=== PATIENT | female | born 1985 | race Caucasian/White ===

== ENCOUNTER → 2016-10-05 | Outpatient (CLI) | payer OTHER ==
[~2016-10-05] MED LIST: ALBU1AER9 INH; AZIT250T PO; CANA1TAB PO; LEVO75TA PO; LIRA18IN SQ; METF500T5 PO; NAPR1TAB9 PO; PRED20TA PO
[2016-10-05 14:40] LABS: BASO % 0.1 %; BASO ABS # 0.01 K/uL (0-0.2); COMPLETE YES; EOS % 0.8 %; HEMATOCRIT 42.3 % (37-47); IG% 0.4 %; LYMPH % 16.6 %; LYMPH ABS # 1.54 K/uL (1.2-3.4); MEAN CELL VOLUME 80.7 fL (80-100); MEAN CORPUSCULAR HEMOGLOBIN 27.9 pg (25-34); MEAN CORPUSCULAR HGB CONC 34.5 g/dl (32-36); MEAN PLATELET VOLUME 9.2 fL (7.4-10.4); MONO % 3.9 %; NEUT % 78.2 %; PLATELET COUNT 290 K/uL (130-400); RED BLOOD COUNT 5.24 M/uL (4.2-5.4); WHITE BLOOD COUNT 9.25 K/uL (4.8-10.8)
== END | disposition home or self-care (01) ==
LOC: C.LAB1850 13:52
PROVIDERS: ATTEND Internal Medicine
DX: M54.5 Low back pain (principal)

== ENCOUNTER 2016-10-30 23:07 | Emergency (ER) | payer OTHER ==
[~2016-10-30] VITALS: Ht 147.3 cm; Wt 84.8 kg
[~2016-10-30 23:07] MED LIST changes: -AZIT250T PO; -CANA1TAB PO; -LIRA18IN SQ
[2016-10-30 23:10] VITALS: BP 129/85; TEMP 36.9; Ht 147.3 cm; Wt 84.8 kg
[2016-10-30] MEDS ORDERED: ALBUT/IPRATROP 3MG/0.5MG NEB 3 ML VIAL INH ONE (23:30)
[2016-10-31] MEDS ORDERED: LIRA18IN SQ (00:06)
[2016-10-31] MEDS ORDERED: CANA1TAB PO (00:06)
[2016-10-31] MEDS ORDERED: AZITHROMYCIN 250 MG TAB PO ONE (00:15)
[2016-10-31] MEDS ORDERED: AZIT250T PO (00:15)
[2016-10-31] MEDS ORDERED: ALBUTEROL HFA 8 GM INHALER INH ONE (00:15)
[2016-10-31 00:28] VITALS: PULSE 96; O2SAT 99
--- NOTE | 2016-10-31 05:33 | EMERGENCY ROOM VISIT NOTE ---
History First contact with patient: 23:16 Chief Complaint: COUGH Stated Complaint: HARD TO BREATHE, CHEST HURTS, COUGHING UP PHLEM Nursing Triage Summary: c/o productive cough, congestion. Took Mucinex before coming to ED History of Present Illness The patient is a 31 year old female who presents to the Emergency Room with complaints of productive cough and chest congestion for the past 2-3 days. The patient is employed at [employer], and believes she may have gotten sick at work. She does not have distinct fever or chills. She has attempted Mucinex at home without significant improvement of symptoms. She does not have a history of asthma or chronic medical disease. She rates her discomfort a 5/10. Review of Systems More than 10 systems were reviewed and otherwise negative with the exception of history of present illness. Past Medical/Surgical History Medical Problems: (1) Bronchitis (2) Gallbladder disease (3) OBESITY, NOS (4) SUICIDAL IDEATION Family History Cancer Diabetes mellitus Heart disease Hypertension Social History Smoking Status: Never Smoker Alcohol Use: none Drug Use: none Marital Status: single Housing Status: lives with friends Occupation Status: employed Current/Historical Medications Scheduled Azithromycin (Zithromax), 250 MG PO DAILY Canagliflozin (Invokana), 100 MG PO DAILY Levothyroxine Sodium (Synthroid), 75 MCG PO DAILY Liraglutide (Victoza), 1.8 MG SQ DAILY Allergies Coded Allergies: No Known Allergies (Unverified , NONE, 10/31/16) Physical Exam Vital Signs Date Time Temp Pulse Resp B/P Pulse Ox O2 Delivery O2 Flow Rate FiO2 10/31/16 00:28 96 22 99 10/30/16 23:49 113 20 99 Nebulizer 10/30/16 23:23 Room Air 10/30/16 23:10 36.9 120 20 129/85 95 Room Air Pain Rating (0-10): 4.0 Physical Exam VITALS: Vitals are noted on the nurse's note and reviewed by myself. Vital signs stable. GENERAL: Well-developed, well-nourished, white female, who is in no acute distress and resting comfortably. Patient is cooperative with the examination. HEAD: Normocephalic atraumatic. EARS: External ear normal. External auditory canals clear, tympanic membranes pearly carmona without erythema or effusion bilaterally. EYES: Pupils equal round and reactive to light and accommodation. Conjunctivae without injection, sclerae without icterus. Extraocular movements intact. NOSE: Patent, turbinates without inflammation or discharge. MOUTH: Mucous membranes moist. Tonsils are not enlarged. Pharynx without erythema, blood, or exudate. Uvula midline. Airway patent. NECK: Supple without nuchal rigidity. No lymphadenopathy. No thyromegaly. Cervical spine is nontender. HEART: Regular rate and rhythm without murmurs gallops or rubs. LUNGS: Clear to auscultation bilaterally without wheezes, rales or rhonchi. No retractions or accessory muscle use. Medical Decision & Procedures Medications Administered Medications (Trade) Dose Ordered Sig/Santi Route Start Time Stop Time Status Last Admin Dose Admin Albuterol/ Ipratropium (Duoneb) 3 ml NOW ONCE INH 10/30/16 23:30 10/30/16 23:31 DC 10/30/16 23:48 3 ML Azithromycin (Zithromax Tab) 500 mg NOW ONCE PO 10/31/16 00:15 10/31/16 00:16 DC 10/31/16 00:26 500 MG Albuterol (Ventolin Hfa Inhaler) 2 puffs NOW ONCE INH 10/31/16 00:15 10/31/16 00:16 DC 10/31/16 00:26 2 PUFFS ED Course Physical exam and history were performed. Nursing notes and EMR were reviewed. Patient appears to have persistent cough for the past few days. She does not appear toxic on examination. The patient was given a DuoNeb treatment here in the department. Chest x-ray was performed. The chest x-ray does not appear to show acute findings. She did have improvement of her discomfort after the DuoNeb, and was experiencing a decreased cough. Overall the patient does appear stable for discharge home. I suspect her symptoms are related to a URI or possible early bronchitis. I will provide the patient a short course of Zithromax as well as an albuterol inhaler. I recommended that she follow with her primary care physician this week for further care and management. She was otherwise invited back to the ER with any new, worsening, or concerning symptoms. She voiced understanding and rated her discomfort a 0/10 at the time of departure. The chart was completed utilizing [employer] Voice Recognition Software. Grammatical errors, random word insertions, pronoun errors, and incomplete sentences are an occasional consequence of this system due to software limitations, ambient noise, and hardware issues. Any formal questions or concerns about the content, text, or information contained within the body of this dictation should be directly addressed to the provider for clarification. . Medical Decision Differential diagnosis: Etiologies such as viral syndrome, otitis, pharyngitis, pneumonia, influenza, meningitis, urinary tract infection, sepsis, bacteremia, as well as others were entertained. Impression Primary Impression: Cough Departure Information Dispostion Home / Self-Care Condition GOOD Prescriptions Azithromycin (Zithromax) 250 Mg Tab 250 MG PO DAILY for 4 Days, #4 TAB Prov: Baljeet Clayton PA-C 10/31/16 Referrals ,Joseph Rice M.D. (PCP) Forms HOME CARE DOCUMENTATION FORM, IMPORTANT VISIT INFORMATION Patient Instructions My [facility] Additional Instructions You were seen and evaluated today on an emergency basis only. This is not a substitute for, or an effort to provide, complete comprehensive medical care. It is not possible to recognize and treat all injuries or illnesses in a single emergency department visit. For this reason it is recommended that you followup with your primary care physician in the next 2-3 days for recheck of your condition. Take Zithromax 250 mg daily for the next 4 days. Use your albuterol inhaler 2 puffs every 4-6 hours as needed for coughing You are welcome to return to the emergency department anytime with new, worsening, or concerning symptoms.
--- NOTE | 2016-10-31 06:39 | DIAGNOSTIC IMAGING REPORT ---
CHEST 2 VIEWS ROUTINE CLINICAL HISTORY: Cough dyspnea COMPARISON STUDY: 03/25/2016 FINDINGS: The bones soft tissues and hemidiaphragms are normal. The cardiomediastinal silhouette is normal. The lungs are clear. The pulmonary vasculature is normal. IMPRESSION: Negative chest. Electronically signed by: Anastacio Jaquez M.D. 10/31/2016 6:37 AM Dictated Date/Time: 10/31/2016 6:35 AM
== END 2016-10-31 00:30 | disposition home or self-care (01) ==
LOC: C.EDB 23:08 → C.EDC 10-31 00:30
DX: R05 Cough (principal); K82.9 Disease of gallbladder, unspecified; Z86.19 Personal history of other infectious and parasitic diseases; Z79.899 Other long term (current) drug therapy; Z80.9 Family history of malignant neoplasm, unspecified; Z83.3 Family history of diabetes mellitus; Z82.49 Family history of ischemic heart disease and other diseases of the circulatory system

== ENCOUNTER → 2017-05-25 | Outpatient (CLI) | payer OTHER ==
[~2017-05-25] MED LIST changes: -ALBU1AER9 INH; +CANA1TAB PO; +LIRA18IN SQ; -METF500T5 PO; -NAPR1TAB9 PO; -PRED20TA PO
[2017-05-25 15:59] LABS: ALT/SGPT 22 U/L (12-78); BLOOD UREA NITROGEN 12 mg/dl (7-18); CALCIUM 9.1 mg/dl (8.5-10.1); CARBON DIOXIDE 27 mmol/L (21-32); CHLORIDE 102 mmol/L (98-107); CHOLESTEROL 203 mg/dl (0-200); CREATININE 0.66 mg/dl (0.60-1.20); GLUCOSE 115 mg/dl (70-99); POTASSIUM 3.7 mmol/L (3.5-5.1); SODIUM 136 mmol/L (136-145)
[2017-05-25 16:09] LABS: ALKALINE PHOSPHATASE 80 U/L (45-117); AST/SGOT 18 U/L (15-37); CHOLESTEROL/HDL RATIO 4.4; HDL CHOLESTEROL 46 mg/dl; LDL CHOLESTEROL CALCULATED 134 mg/dl; TRIGLYCERIDES 113 mg/dl (0-150); VERY LOW DENSITY LIPOPROT CALC 23 mg/dl
[2017-05-25 16:24] LABS: RATIO 53.9 mcg/mg (0-30.0)
[2017-05-25 16:54] LABS: ESTIMATED AVERAGE GLUCOSE 140 mg/dl; HA1C FLAG Normal (Normal)
== END | disposition home or self-care (01) ==
LOC: C.LAB1850 14:35
PROVIDERS: ATTEND Physician Assistant
DX: E03.9 Hypothyroidism, unspecified (principal); E11.9 Type 2 diabetes mellitus without complications

== ENCOUNTER → 2017-08-08 | Outpatient (CLI) | payer OTHER ==
[2017-08-08 12:22] LABS: ESTIMATED AVERAGE GLUCOSE 146 mg/dl; HA1C FLAG Normal (Normal)
[2017-08-08 13:05] LABS: RATIO 13.6 mcg/mg (0-30.0)
== END ==
LOC: C.LAB1850 09:41
PROVIDERS: ATTEND Physician Assistant
DX: E11.9 Type 2 diabetes mellitus without complications (principal)

== ENCOUNTER → 2017-08-25 | Outpatient (CLI) | payer OTHER | END | disposition home or self-care (01) | LOC: C.PAPS 17:42 | PROVIDERS: ATTEND Physician Assistant | DX: Z12.4 Encounter for screening for malignant neoplasm of cervix (principal) ==

== ENCOUNTER → 2018-04-04 | Outpatient (CLI) | payer OTHER ==
--- NOTE | 2018-04-09 13:39 | POLYSOMNOGRAPH REPORT ---
CLINICAL DATA: A 32-year-old female with BMI of 42, referred by Dr. Humphrey with a history of snoring, fatigue, obesity, and sleep apnea. On the evening of 04/05/2018, a home sleep apnea test was performed using a [employer] type 3 monitor. RECORDING RESULTS: Total recording time was 10 hours. The patient's estimated sleep time was 7.4 hours. The patient recording time was 7.4 hours. RESPIRATORY DATA: Mild sleep apnea was documented. The JACQUI was 13. There were 11 obstructive, 1 mixed, and 1 central apneic episode. There were 83 hypopneic episodes. The longest duration of apnea was 50 seconds. OXIMETRY DATA: Nocturnal hypoxemia was seen. Oxygen radha was 81%. Mean saturation was 92%. Time below 89% was 29 minutes. HEART RATE DATA: Heart rates ranged from 59-75 beats per minute. SNORING DATA: Snoring was recorded throughout the night. IMPRESSION: Mild sleep apnea/hypopnea with an JACQUI of 13 with nocturnal hypoxemia. RECOMMENDATIONS: The patient may benefit from weight loss, use of an oral appliance, or repeat sleep study with CPAP. Since the majority of her events occurred while supine, positional therapy may also be of benefit. Clinical correlation is needed. SANDI
== END | disposition home or self-care (01) ==
LOC: C.NEUR 09:55
PROVIDERS: ATTEND Internal Medicine
DX: G47.30 Sleep apnea, unspecified (principal); R06.83 Snoring